=== PATIENT | female | born 1965 | race Caucasian/White ===

== ENCOUNTER 2024-01-18 10:28 | Emergency (ER) | payer BC ==
[2024-01-18] MEDS ORDERED: Naloxone 0.4 MG/ML SDV IVPUSH PRN ×2 (11:19→14:41)
[2024-01-18 11:24] LABS: BASOPHILS PERCENT AUTO 0.1 % (0.1-1.3); EOSINOPHILS PERCENT AUTO 0.1 % (0.0-5.4); HEMOGLOBIN 12.4 g/dL (11.2-15.5); IMMATURE GRAN ABSOLUTE AUTO 0.06 K/uL (0.00-0.23); IMMATURE GRAN PERCENT AUTO 0.4 % (0.0-0.7); LYMPHOCYTES ABSOLUTE AUTO 0.87 K/uL (0.8-3.3); LYMPHOCYTES PERCENT AUTO 6.1 % (11.4-47.7); MEAN CORPUSCULAR HEMOGLOBIN 29.6 pg (31.6-35.5); MEAN CORPUSCULAR HGB CONC 34.4 g/dL (31.6-35.5); MEAN CORPUSCULAR VOLUME 85.9 fL (81.4-99.0); MONOCYTES ABSOLUTE AUTO 0.71 K/uL (0.20-0.90); NEUTROPHILS ABSOLUTE AUTO 12.49 K/uL (1.0-7.6); NEUTROPHILS PERCENT AUTO 88.3 % (40.0-78.1); PLATELET COUNT,PLT 214 K/uL (130-375); RED BLOOD CELL COUNT 4.19 M/uL (3.77-5.24); WHITE BLOOD CELL COUNT,WBC 14.2 K/uL (3.2-11.0)
[2024-01-18] MEDS: HYDROmorphone 0.5 MG/0.5 ML Syringe IVPUSH PRN (11:24)
[2024-01-18] MEDS: Ondansetron 4 MG/2 ML SDV IVPUSH ONE ×2 (11:24→13:49)
[2024-01-18] MEDS: Sodium Chloride 0.9% 1,000 ML IV ONE (11:24)
[2024-01-18 11:25] LABS: BICARBONATE,VENOUS 25.5 mmol/L; CARBOXYHEMOGLOBIN 2.8 % (0.0-1.6); METHEMOGLOBIN 1.2 %; O2 SATURATION VENOUS 41.6; OXYHEMOGLOBIN 39.9 %; PH,VENOUS 7.442 (7.350-7.450); TOTAL HEMOGLOBIN 13.2 g/dL (12.0-16.0)
[2024-01-18 11:25] LABS: AMORPHOUS SEDIMENT,URINE NOT SEEN; APPEARANCE,URINE CLEAR (CLEAR); BACTERIA,URINE NOT SEEN; BILIRUBIN,URINE NEGATIVE (NEGATIVE); COLOR,URINE YELLOW (YELLOW); EPITHELIAL CELLS,URINE FEW; GLUCOSE,URINE 100 mg/dL (NEGATIVE); KETONES,URINE NEGATIVE (NEGATIVE); LEUKOCYTE ESTERASE,URINE NEGATIVE (NEGATIVE); MUCUS,URINE NOT SEEN; NITRITE,URINE NEGATIVE (NEGATIVE); OCCULT BLOOD,URINE TRACE-INTACT (NEGATIVE); PH,URINE 6.5 (5.0-8.0); PROTEIN,URINE 100 mg/dL (NEGATIVE); RBC,URINE 0-5 (0-5); UROBILINOGEN,URINE 0.2 EU/dL (0.2-1.0); WBC,URINE 0-5 (0-5)
[2024-01-18 11:27] LABS: BASOPHILS ABSOLUTE AUTO 0.02 K/uL (0.00-0.10); EOSINOPHILS ABSOLUTE AUTO 0.01 K/uL (0.00-0.40); PO2 VENOUS 23.2 mm/Hg
[2024-01-18 11:46] LABS: A/G RATIO 1.2 (1.2-2.2); ALANINE AMINOTRANSFERASE,ALT 29 U/L (12-78); ALBUMIN 4.2 g/dL (3.4-5.0); ALKALINE PHOSPHATASE 62 U/L (46-116); ASPARTATE AMNIOTRANSFERASE,AST 13 U/L (15-37); BLOOD UREA NITROGEN,BUN 25 mg/dL (7-18); CALCIUM 10.4 mg/dL (8.5-10.1); CARBON DIOXIDE,CO2 26 mmol/L (21-32); CHLORIDE,CL 100 mmol/L (100-108); CREATININE 1.4 mg/dL (0.6-1.0); EST CRCL DRUG DOSING (CG) 41.55 mL/min; ESTIMATED GFR 43 mL/min (>60); GLUCOSE RANDOM 236 mg/dL (74-106); POTASSIUM,K 3.9 mmol/L (3.6-5.2); PROTEIN TOTAL,TP 7.8 g/dL (6.4-8.2); SODIUM,NA 138 mmol/L (140-148)
[2024-01-18 11:48] LABS: ANION GAP 15.9 mmol/L (5.0-14.0)
[2024-01-18 12:12] LABS: CORONAVIRUS COVID-19 NAA NEGATIVE (NEGATIVE); INFLUENZA A NAA NEGATIVE (NEGATIVE); INFLUENZA B NAA NEGATIVE (NEGATIVE); RESPIRATORY SYNCYTIAL VIR NAA NEGATIVE (NEGATIVE)
[2024-01-18] MEDS: Sodium Chloride 0.9% 80 ML IV SCH (12:23)
[2024-01-18] MEDS: Iopamidol 612 MG/ML 100 ML Bottle IV PRN (12:23)
[2024-01-18] MEDS: Sodium Chloride 0.9% 10 ML Syringe FLUSH PRN (12:23)
[2024-01-18] MEDS: Ertapenem 1 GM in Sodium Chloride 0.9% 50 ML IV ONE (13:41)
[2024-01-18] MEDS: HYDROmorphone 0.5 MG/0.5 ML Syringe IVPUSH ONE (14:56)
== END 2024-01-18 15:00 | disposition critical access hospital (66) ==
LOC: JP.ED 10:28
DX: K35.80 Unspecified acute appendicitis (principal); E86.0 Dehydration; I10 Essential (primary) hypertension; E78.00 Pure hypercholesterolemia, unspecified; E11.9 Type 2 diabetes mellitus without complications; Z86.16 Personal history of COVID-19; Z79.899 Other long term (current) drug therapy; Z79.4 Long term (current) use of insulin; Z79.1 Long term (current) use of non-steroidal anti-inflammatories (NSAID); Z88.1 Allergy status to other antibiotic agents; Z88.8 Allergy status to other drugs, medicaments and biological substances
CPT/HCPCS: 0241U; 36415; 74177; 80053; 80307; 81001; 82803; 83605; 83690; 84145; 85025; 86140; 96361; 96365; 96375; 96376; 99285; J1170; J1335; J2405; J3490; J7030; Q9967